=== PATIENT | female | born 1965 | race Caucasian/White ===

== ENCOUNTER 2019-02-04 12:17 | Emergency (ER) | payer OTHER ==
[~2019-02-04] VITALS: Ht 162.6 cm; Wt 81.7 kg
[~2019-02-04 12:17] MED LIST: ALPRAZOLAM1 MG PO; DOXEPIN 25 MG C25 M1 PO; GEODON80 MG PO; LEVOTHYROXINE 0.1 MG PO; LITHIUM CARBON300 M7 PO; PERCOCET PO; XANAX 0.5 MG0.5 MG PO
[2019-02-04 12:35] LABS: URINE BILIRUBIN NEGATIVE (Negative); URINE BLOOD NEGATIVE (Negative); URINE CLARITY CLEAR; URINE COLOR YELLOW; URINE GLUCOSE-RANDOM NEGATIVE (Negative); URINE LEUKOCYTES-REFLEX NEGATIVE (Negative); URINE NITRITE-REFLEX NEGATIVE (Negative); URINE PROTEIN NEGATIVE (Negative); URINE SPECIFIC GRAVITY 1.015 (1.005-1.030); URINE UROBILINOGEN 0.2 E.U./dl (0.2-1.0)
[2019-02-04 12:37] LABS: URINE KETONES 3+ (Negative)
[2019-02-04 12:40] LABS: ABSOLUTE BASOPHILS 0.1 thou/uL (0.0-0.2); ABSOLUTE EOSINOPHILS 0.4 thou/uL (0.0-0.7); ABSOLUTE LYMPHOCYTES 1.7 thou/uL (0.8-5.3); ABSOLUTE MONOCYTES 1.2 thou/uL (0.0-1.2); ABSOLUTE NEUTROPHILS 12.5 thou/uL (1.6-8.1); BASOPHILS 0.6 %; EOSINOPHILS 2.4 %; HEMATOCRIT 42.2 % (37.0-47.0); HEMOGLOBIN 14.2 gm/dL (12.0-15.0); LYMPHOCYTES 10.6 %; MCH 30.7 pg (26.0-34.0); MCHC 33.5 g/dL (28.0-37.0); MCV 91.5 fL (80.0-100.0); MONOCYTES 7.8 %; MPV 7.7 fl. (7.2-11.1); NUCLEATED RBCS 0 /100WBC; PLATELET COUNT* 320 thou/uL (150-400); POLYS 78.6 %; RBC 4.62 mil/uL (4.20-5.00); RDW-CV 12.8 % (10.5-14.5)
[2019-02-04 12:52] LABS: CALCIUM 8.8 mg/dL (8.5-10.1); CREATININE 0.8 mg/dL (0.6-1.3); POTASSIUM 3.8 mmol/L (3.5-5.1)
[2019-02-04 13:04] LABS: ALBUMIN 3.6 g/dL (3.4-5.0); TOTAL BILIRUBIN 0.7 mg/dL (<0.1-1.0); TOTAL PROTEIN 7.7 g/dL (6.4-8.2)
[2019-02-04] MEDS ORDERED: AUGMENTIN 875-1 EACH PO (15:42)
[2019-02-04] MEDS ORDERED: SAPHRIS5 MG SUBQ (15:47)
[2019-02-04] MEDS ORDERED: ZOFRAN4 MG PO (15:48)
[2019-02-04] MEDS ORDERED: NORCO 5-325 TA1 EACH PO (15:48)
[2019-02-04 16:05] VITALS: BP 111/64
--- NOTE | 2019-02-07 12:55 | EKG ---
[place] [address] ELECTROCARDIOGRAM REPORT Name: ALBERTONADIYADELMA Hinojosa Room: [facility]#: [id number] Admission: 02/04/19 Attend Phys: Discharge: 02/04/19 Date of : 63 Report #: [id number] THIS REPORT FOR: //name// [facility] ED Test Date: 2019-02-04 Test Time: 12:35:31 Pat Name: DELMA NARVAEZ Department: Room: Gender: F [employer]: [place] : [id number] Requested By: Sakshi Baird Order Number: [id number] MD: Yo Garcia Measurements Intervals [place] Rate: 90 P: 45 WV: 182 QRS: 11 QRSD: 86 T: 34 QT: 367 QTc: 449 Interpretive Statements Sinus rhythm Baseline wander in lead(s) I,III,aVR,aVL,aVF Compared to ECG 12/13/2007 07:17:00 No significant changes Electronically Signed On 02-07-2019 12:55:42 CDT by Yo Garcia [email or web address] <ELECTRONICALLY SIGNED> By: Yo Garcia MD, [facility] 02/07/19 1255 [id number] Yo Garcia MD, [facility] /EPI
== END 2019-02-04 16:00 | disposition home or self-care (01) ==
LOC: M.ERS 12:17
PROVIDERS: Nurse Practitioner Family
DX: K81.0 Acute cholecystitis (principal); R11.2 Nausea with vomiting, unspecified; F41.9 Anxiety disorder, unspecified; F31.9 Bipolar disorder, unspecified; Z88.1 Allergy status to other antibiotic agents; Z88.2 Allergy status to sulfonamides; Z90.49 Acquired absence of other specified parts of digestive tract; Z98.890 Other specified postprocedural states; Z90.710 Acquired absence of both cervix and uterus